=== PATIENT | female | born 1980 | race Caucasian/White ===

== ENCOUNTER 2021-10-09 15:00 | Outpatient (REF) | payer OTHER, SELFPAY ==
--- NOTE | 2021-10-09 17:12 | PFT_ITS ---
Forced vital capacity 99%, FEV1 96%, FEV1/FVC ratio 78, OCI41-17 is 85%, and MVV 106%. Post bronchodilator therapy, there is a significant increase in the [id number]. Total lung capacity 100%. Residual volume 81%. Diffusion capacity 76% CONCLUSION: Normal pulmonary function test and no evidence of any major obstructive lung disease. However, a significant response to bronchodilator therapy as shown by increased [id number] indicates that the patient may have some element of bronchial asthma. Clinical correlation recommended. MD SEEMA Foster/MODL / [id number]
== END 2021-10-09 15:01 | disposition home or self-care (01) ==
LOC: HO.RESP 15:00
PROVIDERS: PCP Internal Medicine; Visit Provider Internal Medicine
DX: J45.20 Mild intermittent asthma, uncomplicated (principal)
CPT/HCPCS: 94060; 94727; 94729

== ENCOUNTER 2022-08-06 11:53 | Outpatient (REF) | payer OTHER, SELFPAY ==
[2022-08-06 14:47] LABS: Alanine Aminotransferase 17 U/L (0-31); Aspartate Amino Transferase 17 U/L (5-31); Cholesterol 136 mg/dL; Glucose Fasting 85 mg/dL (60-99); HDL Cholesterol 34 mg/dL; LDL Cholesterol Calculated 90 mg/dl; Triglycerides 64 mg/dL
== END 2022-08-06 11:54 | disposition home or self-care (01) ==
LOC: HO.HMGCLDS 11:53
PROVIDERS: PCP Internal Medicine; Visit Provider Internal Medicine
DX: Z00.01 Encounter for general adult medical examination with abnormal findings (principal); F32.A Depression, unspecified; F41.9 Anxiety disorder, unspecified; J30.89 Other allergic rhinitis; J45.20 Mild intermittent asthma, uncomplicated
CPT/HCPCS: 36415; 80061; 82306; 82947; 84450; 84460

== ENCOUNTER 2023-05-11 13:15 | Outpatient (AMB) | payer OTHER, SELFPAY ==
[2023-05-11 13:17] VITALS: BP 122/68; PULSE 95; TEMP 36.6; O2SAT 97; BMI 39.9
--- NOTE | 2023-05-11 13:17 | MHC.OFFWIV ---
Intake Vital Signs 05/11/23 13:17 Height 5 ft 9 in Weight 270 lb BMI 39.9 BP 122/68 Blood Pressure Location Rt brachial Position Sitting Pulse 95 Pulse Source Pulse Oximeter Temp 97.9 F Temp Source Temporal Artery Scan Pulse Oximetry (%) 97 Intake Visit Reasons: EP, sore throat, headache [phone] Intake Note: pt is here for c/o sore throat, headache, phlem colored green Patient Tobacco Use Status: Former Tobacco user Allergies No Known Allergies [No Known Allergies*] Allergy (Verified 05/11/23 13:18) Do you need a note to return to daycare/school/sports/work: Yes HPI HPI Comments History of Present Illness Details This is a 43-year-old female with a past medical history of seasonal allergies and anxiety presenting for evaluation of a sore throat, hoarseness and a cough it started on Tuesday. Patient denies having any fevers, chills, ear pain, shortness of breath, difficulty swallowing or chest pain. Patient has not taken any medication for treatment of her symptoms. [facility] Medical History Vitamin D deficiency Refused influenza vaccine Anxiety and depression Mild intermittent asthma Environmental and seasonal allergies Surgical History Hx of gastric bypass Family History Father Alcoholic Lung cancer Mother Mental health disorder Depression Hypercholesterolemia Hypothyroid Maternal Aunt H/O Zackery thyroiditis Social History Housing: House Patient Tobacco Use Status: Former Tobacco user e-Cigarette/Vaping Use: Never Used service: No Current occupational status: employed Review of Systems Const All systems reviewed & are unremarkable except as noted in HPI and below Denies chills, Denies fatigue and Denies fever(s) Eyes Reports no additional complaints ENT Denies nose pain, Reports sinus pressure, Reports sore throat, Denies throat swelling and Denies tongue swelling Card Reports no additional complaints and Denies dyspnea Resp Reports cough and Denies dyspnea Musc Reports no additional complaints Neuro Reports no additional complaints Psych Reports no additional complaints Endo Denies fatigue Aller/Immun Reports seasonal rhinorrhea, Denies throat swelling and Denies tongue swelling Physical Exam Vital Signs: Last Vital Signs Temp 97.9 F 05/11/23 13:17 Pulse 95 05/11/23 13:17 BP 122/68 05/11/23 13:17 Pulse Ox 97 05/11/23 13:17 BMI result Body Mass Index 39.9 Const General: cooperative, healthy appearing and no acute distress Nutritional Appearance: obese Orientation/consciousness: patient oriented x3 Limitations: no limitations HEENT Head: Yes normal to inspection Ears: TM's abnormal bilaterally (TMs bulging bilaterally; there is erythema and fluid noted behind right TM) General nose exam: Normal external nose present Face and sinus: Yes normal facial exam and Yes sinuses nontender Mouth: Normal oral and palatal mucosa present and moist mucous membranes Teeth and gingiva: dentition normal Throat: Yes posterior oropharynx normal (There is no erythema, edema or exudates in the posterior oropharynx) and Yes postnasal drainage Eyes General: appearance normal, both eyes and all related structures Conjunctivae: conjunctivae normal Pupils: Equal, round and reactive pupils present EOM: EOMs intact bilaterally Resp Effort & Inspection: normal respiratory effort and no audible wheezes Auscultation: clear to auscultation bilaterally Cardio Rate: regular rate Rhythm: regular rhythm Neuro General: patient oriented x3 Cranial nerves: Yes Equal, round and reactive pupils present Psych Appearance: grossly normal Mental Status: mental status grossly normal Insight: Good insight present (Psych) Judgement: Good judgement present (Psych) Results AMB Rapid Strep AMB Rapid Strep Negative Last Edit by Vasquez Gonzalez CMA on 05/11/23 13:29 Results Reviewed Results Reviewed: Strep test negative; reviewed with patient. Assessment & Plan Assessment & Plan (1) Acute pharyngitis: Comment: Tylenol or motrin as needed. Code(s): J02.9 - Acute pharyngitis, unspecified (2) Otitis media of right ear: Code(s): H66.91 - Otitis media, unspecified, right ear Plan: Amoxicillin TID as prescribed. Orders: Orders AMB Rapid Strep Screen Today Z13.9 - Encounter for screening, unspecified Medications: New amoxicillin 500 mg PO Q8H 21 tabs 0RF Coding Level of Care Code New Pt Level 3 (95800) Diagnoses Acute pharyngitis J02.9 Otitis media of right ear H66.91 Time Spent (min) 25
== END 2023-05-11 14:20 | disposition home or self-care (01) ==
PROVIDERS: PCP Internal Medicine; Visit Provider Physician Assistant
DX: J02.9 Acute pharyngitis, unspecified (principal); H66.91 Otitis media, unspecified, right ear
CPT/HCPCS: 87880; 99203

== ENCOUNTER 2023-06-10 10:54 | Outpatient (AMB) | payer OTHER, SELFPAY ==
--- NOTE | 2023-06-10 11:06 | AM.OFFWIN_ITS ---
Intake Vital Signs 06/10/23 11:07 Height 5 ft 9 in Weight 270 lb BMI 39.9 BP 126/76 Blood Pressure Location Rt brachial Position Sitting Pulse 67 Pulse Source Pulse Oximeter Temp 97.9 F Temp Source Temporal Artery Scan Pulse Oximetry (%) 98 Oxygen Delivery Method Room Air Intake Visit Reasons: EST/left wrist pain(lobby) Intake Note: pt is here for c/o left wrist pain due to fall last Patient Tobacco Use Status: Former Tobacco user Allergies No Known Allergies [No Known Allergies*] Allergy (Verified 06/10/23 11:08) HPI HPI Comments History of Present Illness Details This is a 43-year-old female who presents to the office today for sick visit. Patient complaining of left wrist pain status post a mechanical fall that occurred 8 days ago. Patient states she was trying to ?shake something out of her shoe? but lost her balance causing her to fall on an outstretched arm. She denies any numbness/weakness/paresthesias of her left upper extremity. She denies any swelling or ecchymosis. She states it is mostly sore with weight- bearing. REPLACED BY [facility] Medical History Vitamin D deficiency Refused influenza vaccine Anxiety and depression Mild intermittent asthma Environmental and seasonal allergies Surgical History Hx of gastric bypass Family History Father Alcoholic Lung cancer Mother Mental health disorder Depression Hypercholesterolemia Hypothyroid Maternal Aunt H/O Zackery thyroiditis Social History Housing: House Patient Tobacco Use Status: Former Tobacco user e-Cigarette/Vaping Use: Never Used service: No Current occupational status: employed Review of Systems Const All systems reviewed & are unremarkable except as noted in HPI and below Reports no additional complaints Eyes Reports no additional complaints ENT Reports no additional complaints Card Reports no additional complaints Resp Reports no additional complaints GI Reports no additional complaints Reports no additional complaints Musc Reports no additional complaints Skin/Breast Reports system reviewed and no additional complaints, except as documented Neuro Reports no additional complaints Psych Reports no additional complaints Endo Reports no additional complaints Lenin/Lymph Reports no additional complaints Aller/Immun Reports no additional complaints Physical Exam Vital Signs: Last Vital Signs Temp 97.9 F 06/10/23 11:07 Pulse 67 06/10/23 11:07 BP 126/76 06/10/23 11:07 Pulse Ox 98 06/10/23 11:07 Oxygen Delivery Method Room Air 06/10/23 11:07 BMI result Body Mass Index 39.9 Const Other: Vital signs reviewed. Constitutional: Non-toxic appearing. No acute distress. Well-developed and well-nourished. HEENT: Normocephalic and atraumatic. Skin: Warm and dry. No rashes or lesions noted. Neck: Full and painless range of motion. No cervical lymphadenopathy. Cardio: Regular rate. No lower extremity edema. No JVD. Pulmonary: No respiratory distress. No accessory muscle usage. Gastrointestinal: Soft, nontender, and nondistended in all 4 quadrants. Musculoskeletal: Full but painful range of motion of the left wrist with flexion/extension. Mild tenderness to palpation of the anatomical snuffbox but otherwise no tenderness to palpation of the radial/ulnar styloid processes or metacarpals. Neuro: Alert and oriented x4. Cranial nerves 2-12 grossly intact. No focal deficits appreciated. Psych: Normal mood and affect. Assessment & Plan Assessment & Plan (1) Left wrist pain: Code(s): M25.532 - Pain in left wrist Plan: This is a 43-year-old female presenting to the office complaining of left wrist pain status post mechanical fall that occurred 1 week ago. Differential diagnoses includes scaphoid fracture versus radial/ulnar styloid process fracture versus sprain/strain versus contusion. Check x-ray of the left wrist. Upon review of x-ray, there is no obvious fracture or dislocation. Recommend rest/activity modification, ice to the area, and elevation of the extremity. Continue with acetaminophen/ibuprofen for pain management as long as patient has no medical contraindications. Patient advised to follow-up here or proceed to the emergency room for persistent or worsening symptoms. Patient verbalizes her understanding is she is in agreement with the plan. Orders: Orders XR wrist LT 2V Today M25.532 - Pain in left wrist Coding Level of Care Code Est Pt Level 3 (07630) Diagnoses Left wrist pain M25.532
[2023-06-10 11:07] VITALS: BP 126/76; PULSE 67; TEMP 36.6; O2SAT 98; BMI 39.9
== END 2023-06-10 11:50 | disposition home or self-care (01) ==
PROVIDERS: PCP Internal Medicine; Visit Provider Physician Assistant Medical
DX: M25.532 Pain in left wrist (principal)
CPT/HCPCS: 99213

== ENCOUNTER 2023-06-10 11:33 | Outpatient (REF) | payer OTHER, SELFPAY ==
--- NOTE | ~2023-06-10 | XR_ITS ---
EXAMINATION: XR WRIST, LEFT CLINICAL INFORMATION: Pain in left wrist COMPARISON: 09/09/2010 TECHNIQUE: PA, lateral, and oblique views of the left wrist. FINDINGS: The bones and soft tissues are normal. No fracture. Alignment is anatomic with normal joint spaces. No erosions or abnormal soft tissue calcifications. XR/XR wrist LT 2V IMPRESSION: Normal left wrist, without interval change.
== END 2023-06-10 11:34 | disposition home or self-care (01) ==
LOC: HO.HMGCX 11:33
PROVIDERS: PCP Internal Medicine; Visit Provider Physician Assistant Medical
DX: M25.532 Pain in left wrist (principal)
CPT/HCPCS: 73100

== ENCOUNTER 2023-08-10 10:53 | Outpatient (AMB) | payer OTHER, SELFPAY ==
[2023-08-10 11:20] VITALS: BP 130/76; PULSE 72; O2SAT 98; BMI 39.1
--- NOTE | 2023-08-10 11:20 | A.OFFPC_ITS ---
Vital Signs 08/10/23 11:20 Height 5 ft 9 in Weight 265 lb 2 oz BMI 39.1 BP 130/76 Blood Pressure Location Lt brachial Position Sitting Pulse 72 Pulse Source Pulse Oximeter Pulse Oximetry (%) 98 Oxygen Delivery Method Room Air Intake Visit Reasons: Annual exam Intake Note: Pt is here for her Annual PE Is last menstrual period known: Yes Last menstrual period: 07/11/23 Allergies No Known Allergies [No Known Allergies*] Allergy (Verified 08/10/23 23:31) Medication List - Last Reconciled 08/10/23 by Allison Montoya MD fexofenadine ([facility]) 180 mg PO DAILY sertraline 100 mg PO DAILY Tobacco use date assessed: 08/10/23 Dental Screening Dental Screen Date: 08/10/23 Did you have a dental visit in the last 12 months?: No Did you have a dental problem in the last 6 months where you did not have access to dental care?: No Was dental information given to patient?: No HPI Annual exam HPI Details 43-year-old lady here today for physical exam. She is due for her baseline screening mammogram, overdue for her Pap smear, and getting her adult vaccinations. Patient however declines getting any vaccines at present time. She has anxiety and depression, currently controlled on sertraline. Has been diagnosed with mild intermittent asthma, rarely needing to use her inhaler. [facility] is [facility] going [facility] [place] , where she gets her gets monthly allergy shots, and it has been helping control her environmental allergies. Still takes her fexofenadine tablet once a day as needed. FORMERLY [facility], [facility]–1983 Medical History Vitamin D deficiency Refused influenza vaccine Anxiety and depression Mild intermittent asthma Environmental and seasonal allergies Surgical History Hx of gastric bypass Family History Father Alcoholic Lung cancer Mother Mental health disorder Depression Hypercholesterolemia Hypothyroid Maternal Aunt H/O Zackery thyroiditis Social History Housing: House Patient Tobacco Use Status: Former Tobacco user e-Cigarette/Vaping Use: Never Used service: No Current occupational status: employed Cognitive needs: No Hearing needs: No Vision needs: No Female Reproductive History Menstrual Date of last menstrual period: 07/11/23 control method: none Questionnaire PHQ-9 Over the last 2 weeks, how often have you been bothered by any of the following problems? 1. Little interest or pleasure in doing things: not at all 2. Feeling down, depressed, or hopeless: not at all 3. Trouble falling or staying asleep, or sleeping too much: not at all 4. Feeling tired or having little energy: not at all 5. Poor appetite or overeating: not at all 6. Feeling bad about yourself - or that you are a failure or have let yourself or your family down: not at all 7. Trouble concentrating on things, such as reading the newspaper or watching television: not at all 8. Moving or speaking so slowly that other people could have noticed. Or the opposite - being so fidgety or restless that you have been moving around a lot m ore than usual: not at all 9. Thoughts that you would be better off or of hurting yourself in some way: not at all Total score: 0 Depression Screening Interpretation: Negative (Depression stable and controlled on present treatment) Depression Screening Done: Yes 37162 - PHQ-9 Billing: Yes Source: Developed by Drs. Fabian Rivas, Meryl Joiner, Ritchie Johnson and colleagues, with an educational miryam from [employer]. Thrive Questionnaire Date Thrive assessed: 08/10/23 I am a: Patient What is your living situation today?: I have a steady place to live Within the past 12 months, did the food you bought not last and you didn't have the money to get more?: Never true Within the past 12 months, did you worry whether your food would run out before you got money to buy more?: Never true Do you have trouble paying for medicines?: No Do you have trouble getting transportation to medical appointments?: No Do you have trouble paying your heating and electricity bill?: No Do you have trouble taking care of your child, family member or friend?: No Do you have trouble with day-to-day activities such as bathing, preparing meals, shopping, managing finances, etc.?: No Are you currently unemployed and looking for a job?: No Are you interested in more education?: No AUDIT C Alcohol Use Questionnaire (AUDIT-C) 1. How often do you have a drink containing alcohol?: Monthly or less 2. How many drinks containing alcohol do you have on a typical day when you are drinking?: 1 or 2 3. How often do you have six or more drinks on one occasion?: Never Total Score: 1 LIZETT-7 AMB Questionnaire LIZETT-7 Date LIZETT - 7 assessed: 08/10/23 Feeling nervous, anxious, or on edge: 1 = Several days Not being able to stop or control worryin = Several days Worrying too much about different things: 1 = Several days Trouble relaxin = Not at all Being so restless that it is hard to sit still: 0 = Not at all Becoming easily annoyed or irritable: 1 = Several days Feeling afraid as if something awful might happen: 0 = Not at all Total LIZETT-7 score (0-4 normal; 5-9 mild; 10-14 moderate; 15-21 severe): 4 Source: Developed by Drs. Fabian Rivas, Meryl Joiner, Ritchie Johnson and colleagues, with an educational miryam from [employer]. LIZETT-7 Assessment Billing LIZETT-7 Assessment Tool: LIZETT-7 Assessment 20122 ACT Questionnaire In the past 4 weeks, how much of the time did your asthma keep you from getting as much done at work, school or at home?: None of the time During the past 4 weeks, how often have you had shortness of breath?: Not at all During the past 4 weeks, how often did your asthma symptoms wake you up at night or earlier than usual in the morning?: Not at all During the past 4 weeks, how often have you had to use your rescue inhaler or nebulizer medication?: Not at all How would you rate your asthma control during the past 4 weeks?: Completely controlled Score: 25 Review of Systems Const All systems reviewed & are unremarkable except as noted in HPI and below Reports no additional complaints Eyes Reports no additional complaints ENT Reports no additional complaints Card Reports no additional complaints Resp Reports no additional complaints GI Reports no additional complaints Reports no additional complaints Musc Reports no additional complaints Skin/Breast Reports system reviewed and no additional complaints, except as documented Neuro Reports no additional complaints Psych Reports no additional complaints Endo Reports no additional complaints Lenin/Lymph Reports no additional complaints Aller/Immun Reports no additional complaints Physical exam (Primary Care) Vital Signs: Last Vital Signs Pulse 72 08/10/23 11:20 BP 130/76 08/10/23 11:20 Pulse Ox 98 08/10/23 11:20 Oxygen Delivery Method Room Air 08/10/23 11:20 BMI result Body Mass Index 39.1 Tobacco/Smoking Status: Tobacco use Status Tobacco use date assessed 08/10/23 08/10/23 11:25 Patient Tobacco Use Status Former Tobacco user 08/10/23 11:25 e-Cigarette/Vaping Use Never Used 08/10/23 11:25 Depression Screening Interpretation: Negative (Depression stable and controlled on present treatment) Thrive Assessment: Date of Thrive Assessment Date Thrive assessed 08/10/23 08/10/23 11:41 Const General: healthy appearing, comfortable and no acute distress Orientation/consciousness: patient oriented x3 HENMT Ears: hearing grossly normal bilaterally, TM's normal bilaterally and EAC's normal General nose exam: Normal external nose present and No nasal discharge present Face and sinus: Yes sinuses nontender Mouth: Normal oral and palatal mucosa present and moist mucous membranes Eyes General: appearance normal, both eyes and all related structures Neck Neck: Yes full ROM, Yes no lymphadenopathy and Yes supple Thyroid: Thyroid normal Chest Breast/axilla inspection: normal inspection of the breasts Breast/axilla palpation: normal palpation of the breasts Resp Effort & Inspection: normal respiratory effort and able to speak in complete sentences Auscultation: clear to auscultation bilaterally Cardio Other: S1-S2 present regular rate and rhythm no murmurs GI Palpation (GI): Soft to palpation, nontender, no guarding and no masses Auscultation: normal bowel sounds General: Yes no CVA tenderness Back/Spine/Pelvis Back: no CVA tenderness and No back tenderness Skin General skin exam: no rashes or lesions noted Neuro General: patient oriented x3 Extrem General: Yes full ROM, Yes normal exam except as noted, Yes no clubbing, cyanosis or edema, Yes no calf tenderness and Yes normal gait Psych Appearance: grossly normal and well kempt Mental Status: mental status grossly normal Speech and movement: Normal speech and movement present Affect: normal affect Attitude: cooperative Thought process: Normal thought process present Thought content: Normal thought content present Assessment and Plan Assessment & Plan (1) Annual visit for general adult medical examination with abnormal findings: Code(s): Z00.01 - Encounter for general adult medical examination with abnormal findings Plan: Will check appropriate labs. Recommended dental visit every 6 months and regular eye exams, at least every 2 years. Take adequate calcium in diet and vitamin-D 3 at 2000 IU per cap once a day, in addition to weight-bearing exercises to help maintain good muscle tone and weight control. Instructed to do self-breast exam, and scheduled for her yearly mammogram, starting at age 40. Referred to [facility] for her routine Pap and pelvic exam. Patient declines getting any COVID vaccination booster or flu shot (2) Vitamin D deficiency: Code(s): E55.9 - Vitamin D deficiency, unspecified Plan: Vitamin-D level ordered . Advised to start taking vitamin-D 3 2000 units per capsule daily, until lab results are in (3) Refused influenza vaccine: Code(s): Z28.21 - Immunization not carried out because of patient refusal (4) Anxiety and depression: Code(s): F41.9 - Anxiety disorder, unspecified; F32.A - Depression, unspecified Plan: Stable controlled currently on sertraline, refill sent (5) Mild intermittent asthma: Comment: PFT done August 2021 showed no evidence of obstruction but significant response noted on bronchodilator treatment Code(s): J45.20 - Mild intermittent asthma, uncomplicated Plan: Controlled, rarely needing to use her inhaler (6) Environmental and seasonal allergies: Comment: sees Dr Sylvia Juárez at [facility] in [place] , gets allergy shots , started in 2020 Code(s): J30.89 - Other allergic rhinitis Plan: Currently getting monthly allergy shots at [facility] in [place]. Takes fexofenadine as needed Orders: Orders MM tomosynthesis screening BI Today Z12.31 - Encounter for screening mammogram for malignant neoplasm of breast Hemoglobin and Hematocrit Today E55.9 - Vitamin D deficiency, unspecified, F32.A - Depression, unspecified, F41.9 - Anxiety disorder, unspecified, J30.89 - Other allergic rhinitis, J45.20 - Mild intermittent asthma, uncomplicated, Z00.01 - Encounter for general adult medical examination with abnormal findings, Z28.21 - Immunization not carried out because of patient refusal Aspartate Amino Transferase Today E55.9 - Vitamin D deficiency, unspecified, F32.A - Depression, unspecified, F41.9 - Anxiety disorder, unspecified, J30.89 - Other allergic rhinitis, J45.20 - Mild intermittent asthma, uncomplicated, Z00.01 - Encounter for general adult medical examination with abnormal findings, Z28.21 - Immunization not carried out because of patient refusal Vitamin D 25-OH Total Today E55.9 - Vitamin D deficiency, unspecified, F32.A - Depression, unspecified, F41.9 - Anxiety disorder, unspecified, J30.89 - Other allergic rhinitis, J45.20 - Mild intermittent asthma, uncomplicated, Z00.01 - Encounter for general adult medical examination with abnormal findings, Z28.21 - Immunization not carried out because of patient refusal Vitamin B12 and Folate Today E55.9 - Vitamin D deficiency, unspecified, F32.A - Depression, unspecified, F41.9 - Anxiety disorder, unspecified, J30.89 - Other allergic rhinitis, J45.20 - Mild intermittent asthma, uncomplicated, Z00.01 - Encounter for general adult medical examination with abnormal findings, Z28.21 - Immunization not carried out because of patient refusal Lipid Panel Today E55.9 - Vitamin D deficiency, unspecified, F32.A - Depression, unspecified, F41.9 - Anxiety disorder, unspecified, J30.89 - Other allergic rhinitis, J45.20 - Mild intermittent asthma, uncomplicated, Z00.01 - Encounter for general adult medical examination with abnormal findings, Z28.21 - Immunization not carried out because of patient refusal Alanine Aminotransferase Today E55.9 - Vitamin D deficiency, unspecified, F32.A - Depression, unspecified, F41.9 - Anxiety disorder, unspecified, J30.89 - Other allergic rhinitis, J45.20 - Mild intermittent asthma, uncomplicated, Z00.01 - Encounter for general adult medical examination with abnormal findings, Z28.21 - Immunization not carried out because of patient refusal Basic Metabolic Panel Fasting Today E55.9 - Vitamin D deficiency, unspecified, F32.A - Depression, unspecified, F41.9 - Anxiety disorder, unspecified, J30.89 - Other allergic rhinitis, J45.20 - Mild intermittent asthma, uncomplicated, Z00.01 - Encounter for general adult medical examination with abnormal findings, Z28.21 - Immunization not carried out because of patient refusal TSH reflex Free T4 Today E55.9 - Vitamin D deficiency, unspecified, F32.A - Depression, unspecified, F41.9 - Anxiety disorder, unspecified, J30.89 - Other allergic rhinitis, J45.20 - Mild intermittent asthma, uncomplicated, Z00.01 - Encounter for general adult medical examination with abnormal findings, Z28.21 - Immunization not carried out because of patient refusal Referrals [facility] Referral Z12.4 - Encounter for screening for malignant neoplasm of cervix Medications: Refilled sertraline 100 mg PO DAILY 90 tabs 3RF Coding Level of Care Code Est Pt Prev Care 40-64y(77105) Diagnoses Annual visit for general adult medical examination with abnormal findings Z00.01 Vitamin D deficiency E55.9 Refused influenza vaccine Z28.21 Anxiety and depression F41.9; F32.A Mild intermittent asthma J45.20 Environmental and seasonal allergies J30.89 Additional Codes LIZETT-7 Assessment Billing - LIZETT-7 Assessment Tool: LIZETT-7 Assessment 38204 ([id number])
== END 2023-08-10 12:08 | disposition home or self-care (01) ==
PROVIDERS: Visit Provider Internal Medicine
DX: Z00.00 Encounter for general adult medical examination without abnormal findings (principal); E55.9 Vitamin D deficiency, unspecified; Z28.21 Immunization not carried out because of patient refusal; F41.9 Anxiety disorder, unspecified; F32.A Depression, unspecified; J45.20 Mild intermittent asthma, uncomplicated; J30.89 Other allergic rhinitis
CPT/HCPCS: 99396

== ENCOUNTER 2024-08-23 14:14 | Outpatient (REF) | payer OTHER, SELFPAY ==
[2024-08-23 16:43] LABS: MANUAL DIFF FLAG NO
[2024-08-23 16:52] LABS: Basophils Absolute Auto 0.1 X10*3/uL (0.0-0.2); Basophils Percent Auto 0.6 % (0-2); Eosinophils Absolute Auto 0.5 X10*3/uL (0.0-0.4); Eosinophils Percent Auto 5.9 % (0-4); Hemoglobin 10.6 g/dl (12.0-16.0); Imm Gran Abs Auto 0.03 X10*3/uL (0.00-0.03); Imm Gran Pct Auto 0.4 % (0.0-0.4); Lymphocytes Absolute Auto 1.9 X10*3/uL (1.2-4.9); Lymphocytes Percent Auto 23.3 % (20-40); Mean Corpuscular HGB Conc 30.3 g/dl (31.0-35.0); Mean Corpuscular Hemoglobin 21.7 pg (27.0-33.0); Mean Corpuscular Volume 71.7 fL (80.0-98.0); Mean Platelet Volume 9.4 fL (9.4-12.3); Monocytes Absolute Auto 0.6 X10*3/uL (0.1-1.2); Monocytes Percent Auto 7.6 % (2-11); Neutrophils Absolute Auto 5.1 x10*3/uL (2.0-8.3); Neutrophils Percent Auto 62.2 % (45-73); Platelet Count 404 X10*3/uL (160-400); Red Blood Count 4.88 X10*6/uL (4.20-5.50); Red Cell Distribution Width 16.4 % (11.0-16.0); White Blood Count 8.2 X10*3/uL (4.8-10.8)
[2024-08-23 17:22] LABS: Alanine Aminotransferase 12 U/L (0-31); Anion Gap 13 (12-20); Aspartate Amino Transferase 20 U/L (5-31); Blood Urea Nitrogen 14 mg/dL (9-16); Calcium 9.3 mg/dL (8.4-10.2); Carbon Dioxide 19 mmol/L (22-29); Chloride 110 mmol/L (96-108); Cholesterol 123 mg/dL (<200); Estimated Glomerular Filt Rate > 60; Glucose Fasting 94 mg/dL (60-99); HDL Cholesterol 36 mg/dL (>40); LDL Cholesterol Calculated 75 mg/dL (<100); Potassium 3.8 mmol/L (3.3-5.1); Sodium 138 mmol/L (135-145); Triglycerides 63 mg/dL (<150)
[2024-08-23 17:33] LABS: TSH reflex Free T4 0.85 uIU/mL (0.32-4.0); Vitamin D 25-OH Total 20.1 ng/mL (>30)
[2024-08-24 09:48] LABS: Thyroid Peroxidase Antibodies 1 IU/mL (<9)
== END 2024-08-23 14:15 | disposition home or self-care (01) ==
LOC: HO.HMGCLDS 14:14
PROVIDERS: PCP Internal Medicine; Visit Provider Internal Medicine
DX: Z00.01 Encounter for general adult medical examination with abnormal findings (principal); J30.89 Other allergic rhinitis; J45.20 Mild intermittent asthma, uncomplicated; F41.9 Anxiety disorder, unspecified; F32.A Depression, unspecified; E55.9 Vitamin D deficiency, unspecified; Z83.49 Family history of other endocrine, nutritional and metabolic diseases
CPT/HCPCS: 36415; 80048; 80061; 82306; 84443; 84450; 84460; 85025; 86376; 96127

== ENCOUNTER 2024-08-23 14:14 | Outpatient (AMB) | payer OTHER, SELFPAY ==
--- NOTE | 2024-08-23 14:17 | MHC.PC.OV ---
Vital Signs 08/23/24 14:19 Height 5 ft 10 in Weight 269 lb BMI 38.6 BP 110/60 Blood Pressure Location Lt radial Position Sitting Pulse 88 Pulse Source Pulse Oximeter Temp 98.1 F Temp Source Oral Pulse Oximetry (%) 99 Oxygen Delivery Method Room Air Intake Visit Reasons: Annual PE Intake Note: Pt is here today for her PE: Never had a mammogram and last time paps[facility] 3 yrs ago at [facility] Allergies No Known Allergies [No Known Allergies*] Allergy (Verified 08/23/24 14:45) Medication List - Last Reconciled 08/23/24 by Allison Montoya MD dextroamphetamine-amphetamine 10 mg 1 tab PO DAILY fexofenadine ([facility]) 180 mg PO DAILY sertraline 100 mg PO DAILY Tobacco use date assessed: 08/23/24 Dental Screening Dental Screen Date: 08/23/24 Did you have a dental visit in the last 12 months?: No Did you have a dental problem in the last 6 months where you did not have access to dental care?: No Was dental information given to patient?: No HPI Annual PE HPI Details 44-year-old lady with history of anxiety depression, mild intermittent asthma, ADD currently followed by [facility] via telehealth, has environmental allergies, currently receiving [facility], here today for her physical exam. She has never had a screening mammogram done, and last Pap smear was done in [place] approximately 3 years ago per patient. Has remote history of abnormal Paps when she was , successive Paps done after that were normal , as per patient. He has had COVID vaccines in the past but does not want to get a COVID booster, nor does she get flu vaccines she had a Tdap in 2012 . History of bariatric surgery, with gastric Dejuan-en-Y done in distant past, but patient unable to maintain weight loss and has gained most of the weight back. Anxiety depression stable and controlled on sertraline 100 mg taken once a day, needs a refill. [facility] Medical History Vitamin D deficiency Refused influenza vaccine Anxiety and depression Mild intermittent asthma Environmental and seasonal allergies Surgical History Hx of gastric bypass Family History Father Alcoholic Lung cancer Mother Mental health disorder Depression Hypercholesterolemia Hypothyroid Maternal Aunt H/O Zackery thyroiditis Social History Housing: House Patient Tobacco Use Status: Former Tobacco user e-Cigarette/Vaping Use: Never Used service: No Current occupational status: employed Cognitive needs: No Hearing needs: No Vision needs: Yes Female Reproductive History Menstrual control method: none Questionnaire PHQ-9 Over the last 2 weeks, how often have you been bothered by any of the following problems? 1. Little interest or pleasure in doing things: not at all 2. Feeling down, depressed, or hopeless: not at all 3. Trouble falling or staying asleep, or sleeping too much: not at all 4. Feeling tired or having little energy: not at all 5. Poor appetite or overeating: not at all 6. Feeling bad about yourself - or that you are a failure or have let yourself or your family down: not at all 7. Trouble concentrating on things, such as reading the newspaper or watching television: not at all 8. Moving or speaking so slowly that other people could have noticed. Or the opposite - being so fidgety or restless that you have been moving around a lot more than usual: not at all 9. Thoughts that you would be better off or of hurting yourself in some way: not at all Total score: 0 Depression Screening Interpretation: Negative (Stable and controlled on sertraline) Depression Screening Done: Yes 32605 - PHQ-9 Billing: Yes Source: Developed by Drs. Fabian Rivas, Meryl Joiner, Ritchie Johnson and colleagues, with an educational miryam from [employer]. Thrive Questionnaire Date Thrive assessed: 08/23/24 I am a: Patient What is your living situation today?: I have a steady place to live Within the past 12 months, did the food you bought not last and you didn't have the money to get more?: Never true Within the past 12 months, did you worry whether your food would run out before you got money to buy more?: Never true Do you have trouble paying for medicines?: No Do you have trouble getting transportation to medical appointments?: No Do you have trouble paying your heating and electricity bill?: No Do you have trouble taking care of your child, family member or friend?: No Do you have trouble with day-to-day activities such as bathing, preparing meals, shopping, managing finances, etc.?: No Are you currently unemployed and looking for a job?: No Are you interested in more education?: No Please select the resources that you would like help with: None Currently or been in a relationship where the following occur: No concerns reported THRIVE Score: 0 AUDIT C Alcohol Use Questionnaire (AUDIT-C) 1. How often do you have a drink containing alcohol?: Monthly or less 2. How many drinks containing alcohol do you have on a typical day when you are drinking?: 1 or 2 3. How often do you have six or more drinks on one occasion?: Never Total Score: 1 LIZETT-7 AMB Questionnaire LIZETT-7 Date LIZETT - 7 assessed: 08/23/24 Feeling nervous, anxious, or on edge: 0 = Not at all Not being able to stop or control worryin = Not at all Worrying too much about different things: 0 = Not at all Trouble relaxin = Not at all Being so restless that it is hard to sit still: 0 = Not at all Becoming easily annoyed or irritable: 0 = Not at all Feeling afraid as if something awful might happen: 0 = Not at all Total LIZETT-7 score (0-4 normal; 5-9 mild; 10-14 moderate; 15-21 severe): 0 Source: Developed by Drs. Fabian Rivas, Meryl Joiner, Ritchie Johnson and colleagues, with an educational miryam from [employer]. LIZETT-7 Assessment Billing LIZETT-7 Assessment Tool: LIZETT-7 Assessment 90053 Review of Systems Const Reports no additional complaints Eyes Details: Has myopia, previously seen at [facility], with new glasses still pending Reports no additional complaints ENT Reports no additional complaints Card Reports no additional complaints Resp Reports no additional complaints GI Reports no additional complaints Reports no additional complaints Musc Reports no additional complaints Skin/Breast Reports system reviewed and no additional complaints, except as documented Neuro Reports no additional complaints Psych Reports no additional complaints Endo Reports no additional complaints Lenin/Lymph Reports no additional complaints Aller/Immun Reports no additional complaints Physical exam (Primary Care) Vital Signs: Last Vital Signs Temp 98.1 F 08/23/24 14:19 Pulse 88 08/23/24 14:19 BP 110/60 08/23/24 14:19 Pulse Ox 99 08/23/24 14:19 Oxygen Delivery Method Room Air 08/23/24 14:19 BMI result Body Mass Index 38.6 Tobacco/Smoking Status: Tobacco use Status Tobacco use date assessed 08/23/24 08/23/24 14:23 Patient Tobacco Use Status Former Tobacco user 08/23/24 14:23 e-Cigarette/Vaping Use Never Used 08/23/24 14:23 PHQ-9: PHQ-9 Score PHQ-9: Total score 0 08/23/24 14:50 Depression Screening Interpretation: Negative (Stable and controlled on sertraline) Thrive Assessment: Date of Thrive Assessment Date Thrive assessed 08/23/24 08/23/24 14:23 Currently or been in a relationship where the following occur: No concerns reported Const General: comfortable and no acute distress Orientation/consciousness: patient oriented x3 HENMT Ears: TM's normal bilaterally and EAC's normal General nose exam: Normal external nose present and No nasal discharge present Mouth: Normal oral and palatal mucosa present and moist mucous membranes Eyes General: appearance normal, both eyes and all related structures Neck Neck: Yes full ROM, Yes no lymphadenopathy and Yes supple Thyroid: Thyroid normal Chest Breast/axilla inspection: normal inspection of the breasts Breast/axilla palpation: normal palpation of the breasts Resp Effort & Inspection: normal respiratory effort and able to speak in complete sentences Auscultation: clear to auscultation bilaterally Cardio Other: S1-S2 present regular rate and rhythm no murmurs GI Palpation (GI): Soft to palpation, nontender, no guarding and no masses Auscultation: normal bowel sounds General: Yes no CVA tenderness Back/Spine/Pelvis Back: no CVA tenderness and No back tenderness Skin General skin exam: no rashes or lesions noted Neuro General: patient oriented x3 Extrem General: Yes full ROM, Yes normal exam except as noted, Yes no clubbing, cyanosis or edema, Yes no calf tenderness and Yes normal gait Psych Appearance: grossly normal and well kempt Mental Status: mental status grossly normal Speech and movement: Normal speech and movement present Affect: normal affect Attitude: cooperative Thought process: Normal thought process present Thought content: Normal thought content present Coding Level of Care Code Est Pt Prev Care 40-64y(96517) Diagnoses Annual visit for general adult medical examination with abnormal findings Z00. Screening for malignant neoplasm of cervix Z12.4 Environmental and seasonal allergies J30.89 Mild intermittent asthma without complication J45.20 Asthma complication type: uncomplicated Anxiety and depression F41.9; F32.A Vitamin D deficiency E55.9 Additional Codes LIZETT-7 Assessment Billing - LIZETT-7 Assessment Tool: LIZETT-7 Assessment 44191 ([id number]) PHQ-9 - 14106 - PHQ-9 Billing: Yes ([id number]) Assessment & Plan Assessment & Plan (1) Annual visit for general adult medical examination with abnormal findings: Code(s): Z00. - Encounter for general adult medical examination with abnormal findings Plan: Will check appropriate labs. Recommended dental visit every 6 months and regular eye exams, at least every 2 years, recently seen at [facility]. Take adequate calcium in diet and vitamin-D 3 at 2000 IU per cap once a day, in addition to weight-bearing exercises to help maintain good muscle tone and weight control. Instructed to do self-breast exam, and recommended to get yearly mammogram, starting at age 40, ordered today. Referred to [facility] for her routine Pap and pelvic exam. Patient does not want to get any further vaccines, has had COVID vaccines in the past but no booster and due for a tetanus diphtheria booster (2) Screening for malignant neoplasm of cervix: Code(s): Z12.4 - Encounter for screening for malignant neoplasm of cervix Plan: Referred to [facility] for her routine Pap and pelvic exam, remote history of abnormal Pap during her (3) Environmental and seasonal allergies: Comment: sees Dr Sylvia Juárez at [facility] , gets allergy shots , started in 2020 Code(s): J30.89 - Other allergic rhinitis Category: Medical Plan: Currently followed at [facility], continues to receive allergy shots (4) Mild intermittent asthma: Comment: PFT done August 2021 showed no evidence of obstruction but significant response noted on bronchodilator treatment Code(s): J45.20 - Mild intermittent asthma, uncomplicated Category: Medical Qualifiers: Asthma complication type: uncomplicated Qualified Code(s): J45.20 - Mild intermittent asthma, uncomplicated Plan: Rarely needing to use her albuterol inhaler (5) Anxiety and depression: Code(s): F41.9 - Anxiety disorder, unspecified; F32.A - Depression, unspecified Category: Medical Plan: Controlled on sertraline, refill sent on her prescription (6) Vitamin D deficiency: Code(s): E55.9 - Vitamin D deficiency, unspecified Category: Medical Plan: Will check vitamin-D level Orders: Orders Alanine Aminotransferase Today E55.9 - Vitamin D deficiency, unspecified, F32.A - Depression, unspecified, F41.9 - Anxiety disorder, unspecified, J30.89 - Other allergic rhinitis, J45.20 - Mild intermittent asthma, uncomplicated, Z00.01 - Encounter for general adult medical examination with abnormal findings, Z83.49 - Family history of other endocrine, nutritional and metabolic diseases Aspartate Amino Transferase Today E55.9 - Vitamin D deficiency, unspecified, F32.A - Depression, unspecified, F41.9 - Anxiety disorder, unspecified, J30.89 - Other allergic rhinitis, J45.20 - Mild intermittent asthma, uncomplicated, Z00.01 - Encounter for general adult medical examination with abnormal findings, Z83.49 - Family history of other endocrine, nutritional and metabolic diseases Complete Blood Count Auto Diff Today E55.9 - Vitamin D deficiency, unspecified, F32.A - Depression, unspecified, F41.9 - Anxiety disorder, unspecified, J30.89 - Other allergic rhinitis, J45.20 - Mild intermittent asthma, uncomplicated, Z00.01 - Encounter for general adult medical examination with abnormal findings, Z83.49 - Family history of other endocrine, nutritional and metabolic diseases Lipid Panel Today E55.9 - Vitamin D deficiency, unspecified, F32.A - Depression, unspecified, F41.9 - Anxiety disorder, unspecified, J30.89 - Other allergic rhinitis, J45.20 - Mild intermittent asthma, uncomplicated, Z00.01 - Encounter for general adult medical examination with abnormal findings, Z83.49 - Family history of other endocrine, nutritional and metabolic diseases MM tomosynthesis screening BI Today Z12.31 - Encounter for screening mammogram for malignant neoplasm of breast Basic Metabolic Panel Fasting Today E55.9 - Vitamin D deficiency, unspecified, F32.A - Depression, unspecified, F41.9 - Anxiety disorder, unspecified, J30.89 - Other allergic rhinitis, J45.20 - Mild intermittent asthma, uncomplicated, Z00.01 - Encounter for general adult medical examination with abnormal findings, Z83.49 - Family history of other endocrine, nutritional and metabolic diseases Vitamin D 25-OH Total Today E55.9 - Vitamin D deficiency, unspecified, F32.A - Depression, unspecified, F41.9 - Anxiety disorder, unspecified, J30.89 - Other allergic rhinitis, J45.20 - Mild intermittent asthma, uncomplicated, Z00.01 - Encounter for general adult medical examination with abnormal findings, Z83.49 - Family history of other endocrine, nutritional and metabolic diseases TSH reflex Free T4 Today E55.9 - Vitamin D deficiency, unspecified, F32.A - Depression, unspecified, F41.9 - Anxiety disorder, unspecified, J30.89 - Other allergic rhinitis, J45.20 - Mild intermittent asthma, uncomplicated, Z00.01 - Encounter for general adult medical examination with abnormal findings, Z83.49 - Family history of other endocrine, nutritional and metabolic diseases Thyroid Peroxidase Antibodies Today E55.9 - Vitamin D deficiency, unspecified, F32.A - Depression, unspecified, F41.9 - Anxiety disorder, unspecified, J30.89 - Other allergic rhinitis, J45.20 - Mild intermittent asthma, uncomplicated, Z00.01 - Encounter for general adult medical examination with abnormal findings, Z83.49 - Family history of other endocrine, nutritional and metabolic diseases Referrals SONOGRAPHY TECHNOLOGIST Referral Z12.4 - Encounter for screening for malignant neoplasm of cervix Medications: Refilled sertraline 100 mg PO DAILY 90 tabs 4RF
[2024-08-23 14:19] VITALS: BP 110/60; PULSE 88; TEMP 36.7; O2SAT 99; BMI 38.6
== END 2024-08-23 15:10 | disposition home or self-care (01) ==
PROVIDERS: PCP Internal Medicine; Visit Provider Internal Medicine
DX: Z00.01 Encounter for general adult medical examination with abnormal findings (principal); Z12.4 Encounter for screening for malignant neoplasm of cervix; J30.89 Other allergic rhinitis; J45.20 Mild intermittent asthma, uncomplicated; F41.9 Anxiety disorder, unspecified; F32.A Depression, unspecified; E55.9 Vitamin D deficiency, unspecified

== ENCOUNTER 2024-10-24 14:00 | Outpatient (REF) | payer OTHER, SELFPAY ==
--- OUTSIDE RECORDS SUMMARY | 2024-10-24 16:56 | XMS_ITS | Encounter Summary ---
Author Organization [facility] Address [address] [place] [address] Care Team Providers Care Stonecutter Hand Name Role Phone Maria Sol MD Primary Care Provider [facility], Pcp Primary Care Provider [facility] e Encounter Details Date Type Department Care Team Description 03/20/2012 Pt. Non Urgent Medical Question Gastroenterology - [address] [address] Ryan Lainez MD Social History Tobacco Use Types Packs/Day Years Used Date Smoking Tobacco: Former Cigarettes Q uit: 08/01/1995 Smokeless Tobacco: Never Comments:2-3 cigs per day fo r 6mos Alcohol Use Standard Drinks/Week Comments Yes 0 (1 standard drink = 0.6 oz pur e alcohol) 5-6 drinks per yr Sex Assigned at Date Recorded Not on file documented as of this encounter Progress Notes * Blessing GonzalezP.NBarbara - 03/21/2012 7:12 AM EDTFrom: NANCY NUNEZ To: Ryan Lainez MD Sent: TueMar 20, 2012 5:37 PM Subject: Lactose When you said to avoid milk products did you mean just the basics, like milk, cheese, yogurt, ice cream, or everything including like whey products and stuff too. If it's the second then, what am I able to eat because from my understanding, a lot of foods have whey in them? Thanks, Nancy Nunez documented in this encounter Plan of Treatment Not on file documented as of this encounter Visit Diagnoses Not on filedocumented in this encounter Care Teams Stonecutter Hand Relationship Specialty Start Date End Date Maria Sol MD PCP - General Internal Medicine 08/08/11 08/20/21 [facility], Pcp PCP - General Internal Medicine 08/21/21 documented as of this encounter
--- OUTSIDE RECORDS SUMMARY | 2024-10-24 16:56 | XMS_ITS | Encounter Summary ---
Author Organization [facility] Address [address] [place] [address] Care Team Providers Care Vice President Residential Solar Sales Name Role Phone Maria Sol MD Primary Care Provider Mel Riggins, Pcp Primary Care Provider Krishan garcia Encounter Details Date Type Department Care Team Description 05/31/2017 Load Out Worker Report Medical Records [address] [place] [address] Flo Grimm MD Social History Tobacco Use Types Packs/Day Years Used Date Smoking Tobacco: Former Cigarettes Q uit: 08/01/1995 Smokeless Tobacco: Never Comments:2-3 cigs per day fo r 6mos Alcohol Use Standard Drinks/Week Comments Yes 0 (1 standard drink = 0.6 oz pur e alcohol) 1x a month Sex Assigned at Date Recorded Not on file documented as of this encounter Plan of Treatment Not on file documented as of this encounter Visit Diagnoses Not on filedocumented in this encounter Care Teams Vice President Residential Solar Sales Relationship Specialty Start Date End Date Maria Sol MD PCP - General Internal Medicine 08/08/11 08/20/21 [facility], Pcp PCP - General Internal Medicine 08/21/21 documented as of this encounter
--- OUTSIDE RECORDS SUMMARY | 2024-10-24 16:56 | XMS_ITS | Encounter Summary ---
Author Organization [facility] Address [address] [place] [address] Care Team Providers Care Suit Attendant Name Role Phone Maria Sol MD Primary Care Provider Mel Riggins, Pcp Primary Care Provider Krishan garcia Encounter Details Date Type Department Care Team Description 08/09/2017 Supervisor Payroll Report Medical Records [address] [place] [address] Juanis Perla PA-C Social History Tobacco Use Types Packs/Day Years [...] on filedocumented in this encounter Care Teams Suit Attendant Relationship Specialty Start Date End Date Maria Sol MD PCP - General Internal Medicine 08/08/11 08/20/21 Vaishnavi, Pcp PCP - General Internal Medicine 08/21/21 documented as of this encounter
--- OUTSIDE RECORDS SUMMARY | 2024-10-24 16:56 | XMS_ITS | Encounter Summary ---
Author Organization [facility] Address [address] [place] [address] Care Team Providers Care Corporate Communications Specialist Name Role Phone Maria Sol MD Primary Care Provider Mel Riggins, Pcp Primary Care Provider Krishan garcia Encounter Details Date Type Department Care Team Description 02/13/2021 Fixed Income Trading Vice President Report Medical Records [address] [place], [place] [id number] [place] [address] [facility] [address] [place] [address] Social History Tobacco Use Types Packs/Day Years Used Date Smoking Tobacco: Former Cigarettes Q uit: 08/01/1995 Smokeless Tobacco: Never Comments:2-3 cigs per day fo r 6mos Alcohol Use Standard Drinks/Week Comments Yes 0 (1 standard drink = 0.6 oz pur e alcohol) rare Sex Assigned at Date Recorded Not on file COVID-19 Exposure Response Date Recorded In the last month, have you been in contact with someone who was confirmed or suspected to have Coronavirus / COVID-19? No / Unsure 01/16/2021 8:50 AM EDT documented as of this encounter Plan of Treatment Not on file documented as of this encounter Visit Diagnoses Not on filedocumented in this encounter Care Teams Corporate Communications Specialist Relationship Specialty Start Date End Date Maria Sol MD PCP - General Internal Medicine 08/08/11 08/20/21 Vaishnavi Pcp PCP - General Internal Medicine 08/21/21 documented as of this encounter
--- OUTSIDE RECORDS SUMMARY | 2024-10-24 16:56 | XMS_ITS | Clinical Summary ---
Author Organization [facility] Address [address] [place] [address] Care Team Providers Care Library Attendant Name Role Phone Community, Pcp Primary Care Provider Unavailabl e Allergies No known active allergies Medications Medication Sig Dispensed Refills Start Date End Date Status ALBUTEROL SULFATE (ProAir HFA) 108 (90 Base) MCG/ACT Aero Soln Inhale 1-2 Puffs into the lungs every 6 hours as needed for Wheezing or Shortness of Breath. 1 Inhaler 3 12/30/2020 Active medroxyPROGESTERone (DEPO-PROVERA) 150 MG/ML injectionIndications: Encounter for surveillance of injectable contraceptive INJECT 1 ML INTO THE MUSCLE EVERY 3 MONTHS. 1 mL 3 04/07/2021 Active sertraline (ZOLOFT) 100 MG tablet TAKE 1 TABLET BY MOUTH EVERY DAY 30 tablet 1 07/16/2021 Active Active Problems Problem Noted Date Allergic rhinitis 02/20/2021 Asthma, mild intermittent 02/20/2021 Anxiety state, unspecified 06/07/2013 IBS (irritable bowel syndrome) 2 Resolved Problems Problem Noted Date Resolved Date NO ACTIVE MEDICAL PROBLEMS 07/31 Immunizations Name Administration Dates Next Due Influenza (> 6 Months) 04/14/2010 Influenza (>6 Months) Split Preservative Free Tdap 02/28/2012 Family History Medical History Relation Name Comments Cancer, Other Maternal Grandfather bladde r cancer Macular Degeneration Maternal Grandfather Alzheimers Disease Maternal Grandmother Cataract Mother Hypertension Mother Strabismus Mother Blindness Negative Hx CA Breast Negative Hx CA Colon Negative Hx CA Ovarian Negative Hx Relation Name Status Comments Father Lung cancer Maternal Grandfather Maternal Grandmother alzheim ers Mother Alive Hyperthyroid, d epression Paternal Grandfather leukemi a Paternal Grandmother emphyse ma Sister Alive Social History Tobacco Use Types Packs/Day Years Used Date Smoking Tobacco: Former Cigarettes Q uit: 08/01/1995 Smokeless Tobacco: Never Comments:2-3 cigs per day fo r 6mos Alcohol Use Standard Drinks/Week Comments Yes 0 (1 standard drink = 0.6 oz pur e alcohol) rare Sex Assigned at Date Recorded Not on file Last Filed Vital Signs Vital Sign Reading Time Taken Comments Blood Pressure 124/70 01/16/2021 8:59 AM EDT Pulse 77 12/30/2020 4:08 PM EDT Temperature 36.4 ??C (97.6 ??F) 12/30/2020 4:08 PM ED T Respiratory Rate 16 12/30/2020 4:08 PM EDT Oxygen Saturation 96% 04/25/2014 10:02 AM EDT Inhaled Oxygen Concentration - - Weight 126.1 kg (278 lb) 12/30/2020 4:08 PM EDT Height 175.3 cm (5' 9 ) 12/30/2020 4:08 PM EDT Body Mass Index 41.05 12/30/2020 4:08 PM EDT Plan of Treatment Health Maintenance Due Date Last Done Comments Covid-19 Vaccine (#1) 1982 PNEUMOCOCCAL VACCINE FOR HIG H RISK PATIENTS (#1) 2001 CERVICAL CANCER SCREENING 02/02/20192015, 10/13/2012, 11/09/2011, Additional history exists DTAP/TDAP/TD (2 - Td or Tdap) 02/27/2022 02/28/2012 BASELINE HEALTH EXAM 40-64 03/30/202212/30, 12/30/2020, 04/29/2014 MAMMOGRAM 2022 INFLUENZA (#1) 2024 08/23/2018 (Refu sed), 08/14/2012, 04/14/2010 BMI CHECK/ADVISE 08/01/2024 12/30/2020, , 03/21/2019, Additional history exists CHOLESTEROL SCREENING 12/30/2025 12/30/2020 , 04/26/2018 (External Completion), 04/29/2014, Additional history exists Care Teams Library Attendant Relationship Specialty Start Date End Date Community, Pcp PCP - General Internal Medicine 08/21/21
--- OUTSIDE RECORDS SUMMARY | 2024-10-24 16:56 | XMS_ITS | Encounter Summary ---
Author Organization [facility] Address [address] [place] [address] Care Team Providers Care Speech Therapist Name Role Phone Maria Sol MD Primary Care Provider [facility], Pcp Primary Care Provider [facility] e Encounter Details Date Type Department Care Team Description 07/13/2012 Pt. Non Urgent Medic al Question Adult Medicine [address] [address] Janelle Boggs PA-C Social History Tobacco Use Types Packs/Day Years Used Date Smoking Tobacco: Former Cigarettes Q uit: 08/01/1995 Smokeless Tobacco: Never Comments:2-3 cigs per day fo r 6mos Alcohol Use Standard Drinks/Week Comments Yes 0 (1 standard drink = 0.6 oz pur e alcohol) 5-6 drinks per yr Sex Assigned at Date Recorded Not on file documented as of this encounter Progress Notes * Tameka GonzalezP.NBarbara - 07/13/2012 3:42 PM ESTFrom: NANCY NUNEZ To: Janelle Boggs PA-C Sent: Tigist Jul 13, 2012 3:41 PM Subject: Medication refill? I got a message that my medication renewal was approved but I didn't request anything be renewed. Is this something that was done for the meds I got today or is it something else? Thanks, Nancy Nunez documented in this encounter Plan of Treatment Not on file documented as of this encounter Visit Diagnoses Not on filedocumented in this encounter Care Teams Speech Therapist Relationship Specialty Start Date End Date Maria Sol MD PCP - General Internal Medicine 08/08/11 08/20/21 [facility], Pcp PCP - General Internal Medicine 08/21/21 documented as of this encounter
--- OUTSIDE RECORDS SUMMARY | 2024-10-24 16:56 | XMS_ITS | Encounter Summary ---
Author Organization [facility] Address [address] [place] [address] Care Team Providers Care Inside Sales Assistant Name Role Phone Maria Sol MD Primary Care Provider Mel javier [facility], Pcp Primary Care Provider [facility] Encounter Details Date Type Department Care Team Description 07/29/2017 Insulation Worker Apprentice Report Medical Records [address] [place] [address] Flo Grimm MD Social History Tobacco Use [...] on filedocumented in this encounter Care Teams Inside Sales Assistant Relationship Specialty Start Date End Date Maria Sol MD PCP - General Internal Medicine 08/08/11 08/20/21 [facility], Pcp PCP - General Internal Medicine 08/21/21 documented as of this encounter
--- OUTSIDE RECORDS SUMMARY | 2024-10-24 16:56 | XMS_ITS | Encounter Summary ---
Author Organization [facility] Address [address] [place] [address] Care Team Providers Care Biodiesel Product Manager Name Role Phone Maria Sol MD Primary Care Provider Mel javier [facility], Pcp [facility] Encounter Details Date Type Department Care Team Description 01/20/2018 Clinical Supervisor Report Medical Records [address] [place] [address] Flo Grimm MD Social History Tobacco Use [...] on filedocumented in this encounter Care Teams Biodiesel Product Manager Relationship Specialty Start Date End Date Maria Sol MD PCP - General Internal Medicine 08/08/11 08/20/21 [facility], Pcp PCP - General Internal Medicine 08/21/21 documented as of this encounter
--- OUTSIDE RECORDS SUMMARY | 2024-10-24 16:56 | XMS_ITS | Encounter Summary ---
Author Organization [facility] Address [address] [place] [address] Care Team Providers Care Sonar Watchstander Name Role Phone Maria Sol MD Primary Care Provider Mel javier [facility], Pcp Primary Care Provider [facility] e Encounter Details Date Type Department Care Team Description 03/17/2021 Beef Skinner Report Medical Records [address] [place] [address] Sylvia Juárez Social History Tobacco Use Types Packs/Day Years [...] on filedocumented in this encounter Care Teams Sonar Watchstander Relationship Specialty Start Date End Date Maria Sol MD PCP - General Internal Medicine 08/08/11 08/20/21 [facility], Pcp PCP - General Internal Medicine 08/21/21 documented as of this encounter
== END 2024-10-24 14:01 | disposition home or self-care (01) ==
LOC: HO.MAMMO 14:00
PROVIDERS: PCP Internal Medicine; Visit Provider Internal Medicine
DX: Z12.31 Encounter for screening mammogram for malignant neoplasm of breast (principal)
CPT/HCPCS: 77063; 77067

== ENCOUNTER → 2024-10-24 14:15 | Outpatient (BNV) | payer OTHER, SELFPAY | PROVIDERS: PCP Internal Medicine; Visit Provider Internal Medicine | DX: Z12.31 Encounter for screening mammogram for malignant neoplasm of breast (principal) | CPT/HCPCS: 77063; 77067 ==

== ENCOUNTER → 2025-04-24 10:37 | Outpatient (REF) | payer OTHER, SELFPAY ==
--- NOTE | 2025-04-24 10:45 | ECG_ITS ---
Test Reason : f90.0 adhd Blood Pressure : */* mmHG Vent. Rate : 78 BPM Atrial Rate : 78 BPM P-R Int : 138 ms QRS Dur : 92 ms QT Int : 366 ms P-R-T Axes : 50 4 49 degrees QTcB Int : 417 ms Normal sinus rhythm Normal ECG No previous ECGs available Referred By: Latasha Nam Electronically Signed By: Sergio Kumar
== END ==
LOC: HO.CARD 10:37
PROVIDERS: PCP Internal Medicine; Visit Provider Psychiatry & Neurology Psychiatry
DX: F90.0 Attention-deficit hyperactivity disorder, predominantly inattentive type (principal)
CPT/HCPCS: 93005

== ENCOUNTER → 2025-04-24 10:45 | Outpatient (BNV) | payer OTHER, SELFPAY | PROVIDERS: PCP Internal Medicine; Visit Provider Internal Medicine Cardiovascular Disease | DX: F90.0 Attention-deficit hyperactivity disorder, predominantly inattentive type (principal) | CPT/HCPCS: 93010 ==

== ENCOUNTER 2025-06-20 12:49 | Outpatient (AMB) | payer OTHER, SELFPAY ==
[2025-06-20 12:52] VITALS: BP 128/84; PULSE 95; O2SAT 97; BMI 35.6
--- NOTE | 2025-06-20 12:52 | A.OFFVIS_ITS ---
Vital Signs 06/20/25 12:52 Height 5 ft 10 in Weight 248 lb BMI 35.6 BP 128/84 Blood Pressure Location Rt brachial Position Sitting Pulse 95 Pulse Source Pulse Oximeter Pulse Oximetry (%) 97 Oxygen Delivery Method Room Air Intake Visit Reasons: New patient Annual Allergies No Known Allergies (No Known Allergies*) Allergy (Verified 06/20/25 12:56) Medication List - Last Reconciled 06/20/25 by Carley Robison CNM drospirenone-ethinyl estradiol 3-0.02 mg (JOVANNA (28)) 1 tab PO DAILY fexofenadine ([facility]) 180 mg PO DAILY lisdexamfetamine 30 mg PO QAM sertraline 100 mg PO DAILY Is last menstrual period known: Yes Last menstrual period: 05/27/25 HPI Comments Details: Pt presents today for ANNUAL exam , she is new to the office and her to [facility]. She has the following concerns: she is currently taking an otc progestin only BCP and would like to change to a combination pill. she feels it is worsening her depression . she had used depo in the past, but had a gap in TOURIST AGENT care She is in a new relationship x 2 mo and not consistent with condoms. She denies any issues of DV. she would like gc/ct screening today Exercise: limited but increasing, states here daughter and fiance recently moved in with a puppy and she takes the up for walks Nutrition/calcium: [ ] Contraception: BCP Last Pap: 2018 , Results: Neg Last mammo: 09/2024, Results neg PFSH Medical History Vitamin D deficiency Refused influenza vaccine Anxiety and depression Mild intermittent asthma Environmental and seasonal allergies Surgical History Hx of gastric bypass Family History (Updated 06/20/25 @ 13:33 by Carley Robison CNM) Father Alcoholic Lung cancer Mother Mental health disorder Depression Hypercholesterolemia Hypothyroid Maternal Aunt H/O Zackery thyroiditis Social History (Updated 06/20/25 @ 13:49 by Carley Robison CNM) Household Members: Family Housing: House Patient Tobacco Use Status: Former Tobacco user e-Cigarette/Vaping Use: Never Used service: No Current occupational status: employed 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 Cognitive needs: No Hearing needs: No Vision needs: Yes Female Reproductive History Menstrual Age of Menarche: 16 Duration of menses: <3 days Date of last menstrual period: 05/27/25 control method: pills Total pregnancies: 2 Full term: 2 Number of Living Children: 2 History of abnormal pap smear: Yes (2004) History of STI: No Date of Mammogram: 10/24/24 History of abnormal mammogram: No Review of Systems Const Reports no additional complaints Eyes Reports no additional complaints ENT Reports no additional complaints Card Reports no additional complaints Resp Reports no additional complaints GI Reports no additional complaints Reports as per HPI Skin/Breast Reports system reviewed and no additional complaints, except as documented Physical Exam Vital Signs: Last Vital Signs Pulse 95 06/20/25 12:52 BP 128/84 06/20/25 12:52 Pulse Ox 97 06/20/25 12:52 Oxygen Delivery Method Room Air 06/20/25 12:52 BMI result Body Mass Index 35.6 Const General: cooperative, healthy appearing and no acute distress Orientation/consciousness: patient oriented x3 HEENT Head: Yes normal to inspection and Yes normocephalic Ears: external ears normal General nose exam: Normal external nose present Neck Neck: Yes normal visual inspection Chest Breast/axilla inspection: normal inspection of the breasts, normal inspection of the axillae and Other (No skin changes, peau d orange, or nipple discharge noted) Breast/axilla palpation: normal palpation of the breasts, normal palpation of the axillae and no axillary lymphadenopathy Resp Effort & Inspection: normal respiratory effort and able to speak in complete sentences GI Inspection: No distended Palpation (GI): Soft to palpation, nontender and no masses Percussion: Yes normal to percussion Rectal Exam - Female: No External hemorrhoid(s) present External Female Exam: normal external appearance and normal appearance of the urethra Speculum Exam - Vagina: normal appearance of the vagina and normal vaginal discharge Speculum Exam - Cervix: normal appearance of the cervix (friable with cytobrush) and normal palpation (neg CMT) Bimanual exam- vagina & uterus: normal bimanual exam, normal palpation (neg C MT), uterine mobility normal and non-tender Bimanual Exam- Adnexa, other: no masses and No adnexal tenderness Skin General skin exam: no rashes or lesions noted Neuro General: patient oriented x3 and moves all extremities Extrem General: Yes full ROM Psych Speech and movement: Normal speech and movement present Affect: normal affect Attitude: cooperative Thought process: Normal thought process present Assessment & Plan Assessment & Plan (1) Well woman exam with routine gynecological exam: Code(s): Z01.419 - Encounter for gynecological examination (general) (routine) without abnormal findings (2) Encounter for screening examination for sexually transmitted infection: Code(s): Z11.3 - Encounter for screening for infections with a predominantly sexual mode of transmission Plan: gc/ct screen (3) Screening breast examination: Code(s): Z12.39 - Encounter for other screening for malignant neoplasm of breast (4) Surveillance of previously prescribed contraceptive pill: Code(s): Z30.41 - Encounter for surveillance of contraceptive pills Plan: Nancy has no C.I to combination ocp and will be started on Jovanna. She was instructed on the proper initiation of the methadone how to use, as well as the following side effects and potential complications, including headaches nausea irregular breakthrough bleeding for a few months, weight gain, risk of DVT, migraine headaches, cholelithiasis, hypertension. BCP warning signs to report immediately A- Abdomen: Severe pain may indicate liver tumor or ectopic C- Chest: Severe pain and shortness of breath may indicate NM or PE H- Head: Sudden severe headache may indicate stroke E- Eye: Blurriness or loss of vision may indicate blood clot in the eye S- Sudden pain or swelling in the leg: May indicate VTE follow up in 3- 4 mo for med and BP check (5) Screening for malignant neoplasm of cervix: Code(s): Z12.4 - Encounter for screening for malignant neoplasm of cervix Plan: co-testing PAP today Plan During the visit, the following areas of concern were addressed: Monitoring of the menstrual cycle Contraception, including options and instructions, risks and benefits Regular exercise Healthy lifestyle STD strategies to avoid exposure Domestic violence Health Maintenance and Screening -Reviewed ASCCP guidelines for Paps and yearly (bi-yearly ) pelvic exam. -Reviewed and encouraged diet and exercise for cardiovascular and bone health -Reviewed breast self-awareness. Importance of yearly mammogram after age 40 (earlier if first-degree relative with breast cancer at a younger age ) Discuss use of 3 times per week weight-bearing exercise, vitamin D3 and servings of dietary calcium daily for bone health. -continue to follow with PCP for general medical care, immunizations. Family and personal history of cancer reviewed. Genetic screening - not indicated The patient is overweight. Approaches towards weight loss are discussed including burning more calories than 1 takes in by frequent, small meals, portion control, avoiding eating before bedtime, regular exercise with an emphasis on duration rather than intensity, strength training exercise, referral to otr refrigerated cdl truck driver or to weight loss management center upon patient request. RTO one year or sooner melvi Robison CNM Note about provider documentation : If you or the patient named in this chart and are reviewing your medical notes, please note that medical documentation is often written with abbreviations and medical terminology, and directed for other providers who may be involved in your care as well. Documentation is critical to record what has happened, what tests were ordered, and so they are interpreted with the resulting diagnoses. These nodes have been made available for patient review but not specifically written for the patient. Important health information is always given to my patients in clinical instructions. Please review your after visit summary and our contact our clinical staff if you have any questions. Orders: Orders Pap Smear Today Z01.419 - Encounter for gynecological examination (general) (routine) without abnormal findings, Z12.4 - Encounter for screening for malignant neoplasm of cervix CT NG by PCR Vag/Cerv Today Z01.419 - Encounter for gynecological examination (general) (routine) without abnormal findings, Z11.3 - Encounter for screening for infections with a predominantly sexual mode of transmission Medications: New drospirenone-ethinyl estradiol 3-0.02 mg (JOVANNA (28)) 1 tab PO DAILY 84 tabs 3RF Coding Level of Care Code New Pt Prev Care 40-64y(53446) Diagnoses Well woman exam with routine gynecological exam Z01.419 Encounter for screening examination for sexually transmitted infection Z11.3 Screening breast examination Z12.39 Surveillance of previously prescribed contraceptive pill Z30.41 Screening for malignant neoplasm of cervix Z12.4
== END 2025-06-20 13:28 | disposition home or self-care (01) ==
LOC: HO.HWSM 12:49
PROVIDERS: PCP Internal Medicine; Visit Provider Advanced Practice Midwife
DX: Z01.419 Encounter for gynecological examination (general) (routine) without abnormal findings (principal); Z11.3 Encounter for screening for infections with a predominantly sexual mode of transmission; Z12.39 Encounter for other screening for malignant neoplasm of breast; Z30.41 Encounter for surveillance of contraceptive pills
CPT/HCPCS: 99386; 99459

== ENCOUNTER 2025-06-20 12:49 | Outpatient (REF) | payer OTHER, SELFPAY ==
[2025-06-21 00:44] LABS: CT PCR NOT DETECTED (Not Detect.); NG PCR NOT DETECTED (Not Detect.)
== END 2025-06-20 12:50 | disposition home or self-care (01) ==
LOC: HO.LNP 12:49
PROVIDERS: PCP Internal Medicine; Visit Provider Advanced Practice Midwife
DX: Z01.419 Encounter for gynecological examination (general) (routine) without abnormal findings (principal); Z20.2 Contact with and (suspected) exposure to infections with a predominantly sexual mode of transmission; Z11.51 Encounter for screening for human papillomavirus (HPV); Z12.39 Encounter for other screening for malignant neoplasm of breast; Z30.41 Encounter for surveillance of contraceptive pills
CPT/HCPCS: 87491; 87591; 87626; 88175